=== PATIENT | female | born 1980 | race Caucasian/White ===

== ENCOUNTER 2016-05-20 12:36 | Inpatient (IN) | payer OTHER ==
[~2016-05-20] VITALS: Ht 165.1 cm; Wt 49.2 kg
[2016-05-20 17:17] LABS: HEMATOCRIT 38.6 % (36.0-46.0); MCH 30.5 PG (29.0-34.0); MCHC 32.9 G/DL (30.0-36.0); MCV 92.6 FL (83-99); MEAN PLAT.VOLUME 10.7 uM^3 (9.5-12.4); PLATELET COUNT 327 K/uL (156-360); RBC DIS.WIDTH-SD 43.1 % (39-53); RED BLOOD COUNT 4.17 M/uL (3.80-5.20); WHITE BLOOD COUNT 6.9 K/uL (4.1-10.2)
[2016-05-20 17:23] LABS: ADD MEDTOX COMMENT Y; AMPHETAMINE NEGATIVE (500 ng/mL); BARBITURATES NEGATIVE (200 ng/mL); BENZODIAZEPINES NEGATIVE (150 ng/mL); COCAINE NEGATIVE (150 ng/mL); INTERNAL CONTROLS VALID? YES; METHADONE NEGATIVE (200 ng/mL); METHAMPHETAMINE NEGATIVE (500 ng/mL); OPIATES (MORPHINE) PRESUMPTIVE POSITIVE (100 ng/mL); OXYCODONE PRESUMPTIVE POSITIVE (100 ng/mL); PHENCYCLIDINE NEGATIVE (25 ng/mL); PROPOXYPHENE NEGATIVE (300 ng/mL); THC CANNABINOIDS PRESUMPTIVE POSITIVE (50 ng/mL); TRICYCLIC ANTIDEPRESSANTS NEGATIVE (300 ng/mL)
[2016-05-20 17:28] LABS: CHLORIDE 109 mEq/L (99-109); POTASSIUM 3.7 mEq/L (3.7-5.4); SODIUM 142 mEq/L (136-147)
[2016-05-20 17:30] LABS: GLUCOSE 103 mg/dL (70-99)
[2016-05-20 17:31] LABS: ANION GAP 8 MEQ/L (2-14)
[2016-05-20 17:33] LABS: SERUM ETHYL ALCOHOL < 10 mg/dL
[2016-05-20 17:34] LABS: GFR ESTIMATE (CALCULATED) > 59 mL/min/
[2016-05-20 17:36] LABS: UREA NITROGEN (BUN) 10 mg/dL (9-23)
[2016-05-20 17:37] LABS: SALICYLATE 12.6 MG/DL (15-30)
[2016-05-20] MEDS ORDERED: EXCEDRIN EXTRA1 EACH PO (17:52)
[2016-05-20] MEDS ORDERED: CENTRUM COMPLE1 EACH PO (17:52)
[2016-05-20] MEDS ORDERED: BAYER BACK & B1 EACH PO (17:52)
[2016-05-20 19:21] VITALS: BP 121/64
[2016-05-21 08:02] VITALS: BP 120/57
[2016-05-21 16:00] VITALS: BP 120/61
[2016-05-22 07:57] VITALS: BP 111/62
[2016-05-22 15:40] VITALS: BP 126/107
[2016-05-23 08:06] VITALS: BP 93/53
[2016-05-23] MEDS ORDERED: SERTRALINE HCL50 MG PO (10:19)
== END 2016-05-23 11:28 | disposition home or self-care (01) | DRG 885 ==
LOC: EME 12:36 → 1WEST 17:30 → EDOF 17:30 → 1WEST 19:12
PROVIDERS: Emergency Medicine
DX: F32.3 Major depressive disorder, single episode, severe with psychotic features (principal); F11.10 Opioid abuse, uncomplicated; F12.10 Cannabis abuse, uncomplicated; G89.29 Other chronic pain; M54.9 Dorsalgia, unspecified; F17.210 Nicotine dependence, cigarettes, uncomplicated; F19.14 Other psychoactive substance abuse with psychoactive substance-induced mood disorder
CPT/HCPCS: 80048; 84999; 85027; 90837; 97150 GO; 97165 GO; 99281; 99285; G0480

== ENCOUNTER 2016-10-10 15:33 | Emergency (ER) | payer OTHER ==
[~2016-10-10] VITALS: Ht 165.1 cm; Wt 53.8 kg
[~2016-10-10 15:33] MED LIST: BAYER BACK & B1 EACH PO; CENTRUM COMPLE1 EACH PO; EXCEDRIN EXTRA1 EACH PO; LEXAPRO10 MG PO; SERTRALINE HCL50 MG PO
[2016-10-10] MEDS ORDERED: KEFLEX500 MG PO (17:40)
[2016-10-10] MEDS ORDERED: NORCO 5/3251 TABLET PO (17:40)
[2016-10-10 17:49] VITALS: BP 116/69
== END 2016-10-10 17:53 | disposition home or self-care (01) ==
LOC: EME 15:33
PROC: 3E0234Z Introduction of Serum, Toxoid and Vaccine into Muscle, Percutaneous Approach (ICD-10-PCS; principal; 2016-10-10)
PROC: 0HQ1XZZ Repair Face Skin, External Approach (ICD-10-PCS; principal; 2016-10-10)
DX: S01.81XA Laceration without foreign body of other part of head, initial encounter (principal); S01.412A Laceration without foreign body of left cheek and temporomandibular area, initial encounter; S01.411A Laceration without foreign body of right cheek and temporomandibular area, initial encounter; Y08.09XA Assault by strike by other specified type of sport equipment, initial encounter; J32.9 Chronic sinusitis, unspecified; J45.909 Unspecified asthma, uncomplicated; F32.9 Major depressive disorder, single episode, unspecified; F41.9 Anxiety disorder, unspecified; F17.200 Nicotine dependence, unspecified, uncomplicated; F10.10 Alcohol abuse, uncomplicated; F19.10 Other psychoactive substance abuse, uncomplicated
CPT/HCPCS: 70450; 70486; 99281; 99284

== ENCOUNTER 2016-11-25 06:20 | Day surgery (SDC) | payer OTHER ==
[~2016-11-25] VITALS: Ht 165.1 cm; Wt 63.9 kg
[~2016-11-25 06:20] MED LIST changes: +KEFLEX500 MG PO; +NORCO 5/3251 TABLET PO; +PROAIR HFA8.5 GM IH; +ULTRAM50 MG PO
[2016-11-25 06:35] VITALS: BP 113/67
[2016-11-25 06:50] LABS: HEMATOCRIT 39.3 % (36.0-46.0); MCV 96.1 FL (83-99)
[2016-11-25 11:10] VITALS: BP 109/58
[2016-11-25 15:23] VITALS: BP 109/54
[2016-11-25 19:38] VITALS: BP 117/56
[2016-11-25 23:18] VITALS: BP 110/55
[2016-11-26 03:30] VITALS: BP 109/58
[2016-11-26 07:35] VITALS: BP 125/64
[2016-11-26 11:50] VITALS: BP 124/80
[2016-11-26] MEDS ORDERED: MOTRIN800 MG PO (14:56)
[2016-11-26] MEDS ORDERED: NORCO 5/3251 TABLET PO (14:58)
[2016-11-26] MEDS ORDERED: DOCUSATE SODIU100 MG PO (14:58)
== END 2016-11-26 14:20 | disposition home or self-care (01) ==
LOC: SDC 06:20 → 2EAST 09:38 → 2SOUTH 09:38 → 2EAST 09:38 → ENRESERV 09:42 → 2EAST 11:03 → SDC 11:19 → 2EAST 11-26 14:20
PROVIDERS: Obstetrics & Gynecology
DX: N82.3 Fistula of vagina to large intestine (principal); R15.9 Full incontinence of feces; J45.909 Unspecified asthma, uncomplicated; F17.200 Nicotine dependence, unspecified, uncomplicated; N88.8 Other specified noninflammatory disorders of cervix uteri
CPT/HCPCS: 84702; 85014; 85018; 86850; 86900; 86901; G0378; J0131; J0690; J1100; J1170; J1885; J2250; J2405; J2765; J3010; J7120